=== PATIENT | female | born 1940 | race Caucasian/White ===

== ENCOUNTER → 2019-01-04 | Outpatient (CLI) | payer OTHER ==
[~2019-01-04] MED LIST: REGADENOSON 0.4 MG/5 ML SYR IV ONE
--- NOTE | 2019-01-04 16:27 | Cardiology Report ---
DATE OF STUDY: LEXISCAN NUCLEAR STRESS TEST TECHNIQUE: The patient was given 11 millicuries of Myoview. Resting images were obtained in the horizontal long axis, vertical long axis and short axis. Patient was then hooked up to the EKG machine. Lexiscan was infused over 15 seconds during Lexiscan. Immediately after Lexiscan infusion, the patient was given 32 millicuries of Myoview. Stress images were obtained in the horizontal long axis, vertical long axis and short axis. RESULTS 1. The resting EKG demonstrated normal sinus rhythm with some nonspecific S/T and T-wave changes. There were no EKG changes and no symptoms during Lexiscan infusion. 2. There was normal perfusion to all segments of the myocardium on the resting images. 3. There was a small area of diminished perfusion in the anterior septum on the stress images. 4. There was normal left ventricular size and function with an ejection fraction of 56%. CONCLUSION: The patient has a small reversible defect in the anterior septum concerning for myocardial ischemia. Job#: [id number]
== END ==
LOC: NM 09:51
PROVIDERS: ATTEND Internal Medicine Cardiovascular Disease
DX: R07.2 Precordial pain (principal)
CPT/HCPCS: 78452; 93017; A9502; J2785